=== PATIENT | female | born 1935 | race Caucasian/White ===

== ENCOUNTER → 2016-08-04 | Outpatient (CLI) | payer MEDICARE, OTHER ==
[~2016-08-04] MED LIST: BYSTOLIC20 MG PO; CALCIUM600 MG PO; DIOVAN320 MG PO; FISH OIL 1,4001 EACH PO; HALFPRIN81 MG PO; HYDROCHLOROTHIA25 MG PO; LIPITOR80 MG PO; MULTIVITAMINS1 EAC1 PO; SYNTHROID25 MCG PO; VITAMIN C500 M1 PO; VITAMIN D31000 UNI1 PO
== END | disposition short-term general hospital (02) ==
LOC: CLNEUR 09:05
DX: M25.551 Pain in right hip (principal); M25.552 Pain in left hip; Z98.1 Arthrodesis status

== ENCOUNTER → 2016-09-12 | Outpatient (CLI) | payer MEDICARE, OTHER | END | disposition short-term general hospital (02) | LOC: CLCARD 03:13 | DX: I25.10 Atherosclerotic heart disease of native coronary artery without angina pectoris (principal); I35.0 Nonrheumatic aortic (valve) stenosis; E78.5 Hyperlipidemia, unspecified; I10 Essential (primary) hypertension; E66.9 Obesity, unspecified; R53.1 Weakness; R53.83 Other fatigue; R10.9 Unspecified abdominal pain; Z95.1 Presence of aortocoronary bypass graft ==

== ENCOUNTER → 2016-09-26 | Outpatient (CLI) | payer MEDICARE, OTHER | END | disposition short-term general hospital (02) | LOC: CLCARD 09:22 | DX: I25.10 Atherosclerotic heart disease of native coronary artery without angina pectoris (principal); I35.0 Nonrheumatic aortic (valve) stenosis; I10 Essential (primary) hypertension; E78.5 Hyperlipidemia, unspecified; E66.9 Obesity, unspecified; R53.1 Weakness; I44.0 Atrioventricular block, first degree; I49.1 Atrial premature depolarization; R94.31 Abnormal electrocardiogram [ECG] [EKG]; I44.7 Left bundle-branch block, unspecified; Z95.1 Presence of aortocoronary bypass graft ==